=== PATIENT | male | born 1985 | race Caucasian/White ===

== ENCOUNTER 2025-01-04 15:17 | Inpatient (IN) | payer OTHER ==
[2025-01-04 15:55] VITALS: BMI 23.2
[2025-01-04] MEDS ORDERED: IBUPROFEN 600 MG TABLET (FP) PO PRN (16:13)
[2025-01-04] MEDS ORDERED: LOPERAMIDE HCL 2 MG CAPSULE PO PRN (16:13)
[2025-01-04] MEDS ORDERED: chlordiazePOXIDE HCL 25 MG CAPSULE PO PRN (16:13)
[2025-01-04] MEDS ORDERED: POLYETHYLENE GLYCOL (HEALTHYLAX) 3350 17 GM PACKET PO PRN (16:13)
[2025-01-04] MEDS ORDERED: BENZONATATE 200 MG CAPSULE PO PRN (16:13)
[2025-01-04] MEDS ORDERED: MAG HYDROX/AL HYDROX/SIMETH 30 ML UNIT-DOSE CUP PO PRN (16:13)
[2025-01-04] MEDS ORDERED: MAGNESIUM HYDROX 2400MG/30ML ORAL SUSPENSION 30 ML CUP PO PRN (16:13)
[2025-01-04] MEDS ORDERED: NALOXONE (NARCAN) HCL 4 MG/0.1 ML SPRAY NS PRN (16:13)
[2025-01-04] MEDS ORDERED: guaiFENesin 600 MG TABLET.ER (FP) PO PRN (16:13)
[2025-01-04] MEDS ORDERED: ACETAMINOPHEN 325 MG TABLET (FP) PO PRN (16:13)
[2025-01-04] MEDS ORDERED: BISMUTH SUBSALICYLATE 524 MG/30 ML PO PRN (16:13)
[2025-01-04] MEDS ORDERED: DICYCLOMINE HCL 10 MG CAPSULE PO PRN (16:13)
[2025-01-04] MEDS ORDERED: IBUPROFEN 400 MG TABLET (FP) PO PRN (16:13)
[2025-01-04] MEDS ORDERED: ONDANSETRON *ODT* 4 MG TABLET SL PRN (16:13)
[2025-01-04] MEDS ORDERED: BENZOCAINE/MENTHOL (CHLORASEPTIC ) LOZENGE MM PRN (16:13)
[2025-01-04] MEDS ORDERED: chlordiazePOXIDE HCL 25 MG CAPSULE ONE (16:44)
[2025-01-04] MEDS ORDERED: METOPROLOL TARTRATE 25 MG TABLET (FP) ONE (16:45)
[2025-01-04] MEDS: METOPROLOL TARTRATE 25 MG TABLET (FP) PO ONE (16:47)
[2025-01-04] MEDS: chlordiazePOXIDE HCL 25 MG CAPSULE PO SCH (16:48)
[2025-01-04] MEDS: MELATONIN 5 MG TABLETS PO SCH (22:13)
[2025-01-04] MEDS: THIAMINE 100 MG TABLET PO SCH (22:14)
[2025-01-05 09:00] LABS: HEMATOCRIT 42.7 % (40.1-51.0); HEMOGLOBIN 14.1 g/dL (13.7-17.5); MEAN CELL VOLUME 93.8 fl (79.0-92.2); MEAN PLT VOLUME 9.9 fl (9.4-12.4); PLATELET COUNT 277 x10^3/uL (163-337); RDW 13.1 % (12.0-15.6)
[2025-01-05 09:04] LABS: CHLORIDE 101 mmol/L (98-107); POTASSIUM 3.5 mmol/L (3.5-5.1); SODIUM 142 mmol/L (136-145)
[2025-01-05] MEDS: PRENATAL VITAMINS W/ FOLIC ACID TABLET (FP) PO SCH (09:07)
[2025-01-05 09:13] LABS: ANION GAP 13 mmol/L (4-13); CALCIUM 8.6 mg/dL (8.5-10.1); CO2 28 mmol/L (21-32); GLUCOSE,RANDOM 99 mg/dL (74-106)
[2025-01-05 09:14] LABS: ALBUMIN 3.5 g/dl (3.4-5.0)
[2025-01-05 09:15] LABS: SGPT/ALT 34 U/L (13-61)
[2025-01-05 09:16] LABS: CREATININE 0.9 mg/dL (0.55-1.3); SGOT/AST 49 U/L (15-37)
[2025-01-05 09:17] LABS: BILIRUBIN,TOTAL 2.2 mg/dL (0.2-1); TOT PROT 6.4 g/dl (6.4-8.2)
[2025-01-05 09:18] LABS: ALK PHOS 81 U/L (45-117)
[2025-01-05 11:41] LABS: HCV DIAGNOSTIC IN-HOUSE W/RFLX NON-REACTIVE (NONREACTIVE); HIV INTERPRETATION NEGATIVE (NEGATIVE)
[2025-01-05] MEDS: hydrOXYzine PAMOATE 25 MG CAPSULE (FP) PO PRN (17:08)
[2025-01-05] MEDS: METHOCARBAMOL 500 MG TABLET PO PRN (22:05)
[2025-01-06] MEDS: chlordiazePOXIDE HCL 25 MG CAPSULE PO SCH (05:22)
[2025-01-06 06:26] VITALS: RESP 16
[2025-01-06 08:54] VITALS: BP 118/68; PULSE 94; TEMP 97.1
[2025-01-07] MEDS ORDERED: chlordiazePOXIDE HCL 10 MG CAPSULE PO PRN
[2025-01-07] MEDS ORDERED: chlordiazePOXIDE HCL 10 MG CAPSULE PO SCH (05:00)
[2025-01-08] MEDS ORDERED: chlordiazePOXIDE HCL 10 MG CAPSULE PO SCH (05:00)
[2025-01-09] MEDS ORDERED: chlordiazePOXIDE HCL 10 MG CAPSULE PO ONE (05:00)
== END 2025-01-06 12:23 | disposition left against medical advice (07) | DRG 770 ==
LOC: YASAS 15:17 → Y3N 16:34
PROVIDERS: ADMIT Neuromusculoskeletal Medicine & OMM; ATTEND Neuromusculoskeletal Medicine & OMM
PROC: HZ2ZZZZ Detoxification Services for Substance Abuse Treatment (ICD-10-PCS; principal; 2025-01-04)
DX: F10.230 Alcohol dependence with withdrawal, uncomplicated (principal); F10.282 Alcohol dependence with alcohol-induced sleep disorder; F10.280 Alcohol dependence with alcohol-induced anxiety disorder; Z87.19 Personal history of other diseases of the digestive system
CPT/HCPCS: 36415; 80053; 80305; 80307; 85027; 86780; 86803; 87389; 93005; 93010